=== PATIENT | female | born 1950 | race African-American/Black ===

== ENCOUNTER 2016-09-16 13:25 | Emergency (ER) | payer MEDICARE | END 2016-09-16 13:56 | disposition home or self-care (01) | LOC: MADERS 13:25 | DX: L30.9 Dermatitis, unspecified (principal); E11.9 Type 2 diabetes mellitus without complications; I10 Essential (primary) hypertension; F17.210 Nicotine dependence, cigarettes, uncomplicated; Z79.84 Long term (current) use of oral hypoglycemic drugs; Z79.4 Long term (current) use of insulin; Z79.899 Other long term (current) drug therapy | CPT/HCPCS: 99282 ==

== ENCOUNTER 2020-09-07 09:14 | Emergency (ER) | payer MEDICARE ==
[2020-09-07] MEDS ORDERED: predniSONE 20 MG TAB ONE (09:56)
[2020-09-07] MEDS ORDERED: Ibuprofen 400 MG TAB ONE (09:56)
== END 2020-09-07 10:56 | disposition home or self-care (01) ==
LOC: MADERS 09:14
DX: S33.5XXA Sprain of ligaments of lumbar spine, initial encounter (principal); R19.09 Other intra-abdominal and pelvic swelling, mass and lump; E78.5 Hyperlipidemia, unspecified; E78.00 Pure hypercholesterolemia, unspecified; E11.9 Type 2 diabetes mellitus without complications; I10 Essential (primary) hypertension; F17.210 Nicotine dependence, cigarettes, uncomplicated; Z79.899 Other long term (current) drug therapy; Z79.4 Long term (current) use of insulin; X58.XXXA Exposure to other specified factors, initial encounter
CPT/HCPCS: 74176; J7512

== ENCOUNTER 2022-03-27 10:09 | Outpatient (CLI) | payer MEDICARE, OTHER | END 2022-03-27 10:10 | disposition home or self-care (01) | LOC: MADLAB 10:09 | PROVIDERS: ATTEND Internal Medicine | DX: J45.909 Unspecified asthma, uncomplicated (principal); J98.4 Other disorders of lung | CPT/HCPCS: 71046 ==

== ENCOUNTER 2022-04-04 16:27 | Outpatient (CLI) | payer OTHER ==
[~2022-04-04 16:27] MED LIST: Iopamidol 370 76% 100 ML VIAL ONE
== END 2022-04-04 16:28 | disposition home or self-care (01) ==
LOC: MADULT 16:27
PROVIDERS: ATTEND Internal Medicine
DX: R93.89 Abnormal findings on diagnostic imaging of other specified body structures (principal); R91.8 Other nonspecific abnormal finding of lung field; J98.11 Atelectasis; C96.9 Malignant neoplasm of lymphoid, hematopoietic and related tissue, unspecified; R91.1 Solitary pulmonary nodule; E27.8 Other specified disorders of adrenal gland
CPT/HCPCS: 71260; Q9967